=== PATIENT | male | born 1990 | race Caucasian/White ===

== ENCOUNTER 2017-12-19 10:04 | Emergency (ER) | payer OTHER ==
[~2017-12-19] VITALS: Ht 180.3 cm; Wt 161.8 kg
[2017-12-19 10:56] LABS: HEMATOCRIT 45.5 % (38.0-50.0); HEMOGLOBIN 15.5 G/DL (12.5-16.6); MCH 27.7 PG (29.0-34.0); MCHC 34.1 G/DL (30.0-36.0); MCV 81.4 FL (86-99); PLATELET COUNT 281 K/uL (156-360); RBC DIS.WIDTH-CV 13.1 % (11.8-14.6); RBC DIS.WIDTH-SD 38.2 % (39-53); RED BLOOD COUNT 5.59 M/uL (4.00-5.50); WHITE BLOOD COUNT 10.1 K/uL (4.1-10.2)
[2017-12-19 11:07] LABS: CHLORIDE 104 mEq/L (99-109); SODIUM 137 mEq/L (136-147)
[2017-12-19 11:09] LABS: GLUCOSE 88 mg/dL (70-99)
[2017-12-19 11:12] LABS: CREATININE 0.8 mg/dL (0.6-1.3)
[2017-12-19 11:13] LABS: GFR ESTIMATE (CALCULATED) > 59 mL/min/ (58.99-99999); UREA NITROGEN (BUN) 12 mg/dL (9-23)
[2017-12-19 12:53] LABS: ALBUMIN 4.5 g/dL (3.2-4.8)
[2017-12-19 12:56] LABS: TOTAL PROTEIN 7.8 g/dL (6.4-8.3)
[2017-12-19 12:57] LABS: TOTAL BILIRUBIN 0.4 mg/dL (0.0-1.0)
[2017-12-19 12:58] LABS: ALKALINE PHOSPHATASE 78 IU/L (3-129)
[2017-12-19 13:01] LABS: AST (GOT) 28 IU/L (2-34); DIRECT BILIRUBIN 0.2 mg/dL (0.0-0.3)
[2017-12-19 13:02] LABS: ALT (GPT) 45 IU/L (3-49)
[2017-12-19 13:52] LABS: APPEARANCE CLEAR ((CLEAR)); BILIRUBIN NEGATIVE; BLOOD NEGATIVE; COLOR STRAW ((YELLOW)); GLUCOSE (STRIP) NEGATIVE; KETONES 5; LEUKOCYTES NEGATIVE; NITRITE NEGATIVE; PROTEIN (STRIP) NEGATIVE; UCUL ADDED? NO; UROBILINOGEN 0.2 MG/DL (0.2-1.0)
[2017-12-19 14:10] LABS: SPECIFIC GRAVITY 1.072 (1.000-1.030)
[2017-12-19] MEDS ORDERED: PRILOSEC20 MG PO (14:21)
[2017-12-19 14:25] VITALS: BP 143/67
== END 2017-12-19 14:25 | disposition home or self-care (01) ==
LOC: EME 10:04
PROVIDERS: Physician Assistant Medical
DX: K92.2 Gastrointestinal hemorrhage, unspecified (principal); F17.200 Nicotine dependence, unspecified, uncomplicated
CPT/HCPCS: 74177; 80048; 80076; 81003; 85027; 86850; 86900; 86901; 99281; 99284; J7030